=== PATIENT | female | born 1970 | race Caucasian/White ===

== ENCOUNTER 2021-06-30 07:00 | Outpatient (RCR) | payer BC | END 2021-07-13 | LOC: PT 07:00 | PROVIDERS: ATTEND Psychiatry & Neurology Neurology | DX: M43.16 Spondylolisthesis, lumbar region (principal); M46.97 Unspecified inflammatory spondylopathy, lumbosacral region; M47.816 Spondylosis without myelopathy or radiculopathy, lumbar region ==

== ENCOUNTER → 2021-06-30 | Outpatient (CLI) | payer BC ==
[2021-06-30 09:16] LABS: MAGNESIUM 2.2 MG/DL (1.3-2.1)
[2021-06-30 09:39] LABS: FERRITIN 7.64 ng/mL (4.63-204.00)
== END ==
LOC: LAB 08:24
PROVIDERS: ATTEND Psychiatry & Neurology Neurology
DX: E53.8 Deficiency of other specified B group vitamins (principal); E61.1 Iron deficiency; E55.9 Vitamin D deficiency, unspecified; E78.5 Hyperlipidemia, unspecified; E66.01 Morbid (severe) obesity due to excess calories; Z98.84 Bariatric surgery status
CPT/HCPCS: 36415; 80061; 82728; 82747; 83036; 83540; 83735; 84207; 84425; 84466